=== PATIENT | female | born 1985 | race Caucasian/White ===

== ENCOUNTER 2022-11-23 13:08 | Outpatient (CLI) | payer SELFPAY | END 2022-11-23 13:09 | disposition home or self-care (01) | LOC: NFLDREF 11-25 07:14 | PROVIDERS: PCP Family Medicine; Referring Provider Family Medicine; Visit Provider Obstetrics & Gynecology | DX: N39.46 Mixed incontinence (principal); R32 Unspecified urinary incontinence | CPT/HCPCS: 87086 ==